=== PATIENT | male | born 1980 | race Caucasian/White ===

== ENCOUNTER 2017-01-10 10:33 | Emergency (ER) | payer BC ==
[2017-01-10] MEDS ORDERED: Ketorolac 60 MG/2 ML SDV IM ONE (11:09)
--- NOTE | 2017-01-10 11:09 | EDM.PDOC ---
ED HPI GENERAL MEDICAL PROBLEM - General Chief Complaint: Lower Extremity Injury/Pain Stated Complaint: RT ANKLE HURTS Time Seen by Provider: 01/10/17 10:54 Source of Information: Reports: Patient History Limitations: Reports: No Limitations - History of Present Illness INITIAL COMMENTS - FREE TEXT/NARRATIVE: History of present illness: [36-year-old male presenting with complaints of right-sided ankle pain. Patient indicates that he woke up with swelling on the external aspect of his ankle and was painful to step down onto the foot.] Review of systems: As per history of present illness and below otherwise all systems reviewed and negative. Past medical history: As per history of present illness and as reviewed below otherwise noncontributory. Surgical history: As per history of present illness and as reviewed below otherwise noncontributory. Social history: No reported history of drug or alcohol abuse. Family history: As per history of present illness and as reviewed below otherwise noncontributory. Physical exam: HEENT: Atraumatic, normocephalic, pupils reactive, negative for conjunctival pallor or scleral icterus, mucous membranes moist, throat clear, neck supple, nontender, trachea midline. Lungs: Clear to auscultation, breath sounds equal bilaterally, chest nontender. Heart: S1S2, regular, negative for clicks, rubs, or JVD. Abdomen: Soft, nondistended, nontender. Negative for masses or hepatosplenomegaly. Negative for costovertebral tenderness. Pelvis: Stable nontender. Genitourinary: Deferred. Rectal: Deferred. Extremities: Right ankle with some amount of swelling from the malleolus into the dorsal aspect of the right foot, tender to touch and radiates up into the leg. Neurovascular unremarkable. Neuro: Awake, alert, oriented. Cranial nerves II through XII unremarkable. Cerebellum unremarkable. Motor and sensory unremarkable throughout. Exam nonfocal. 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 - Related Data Allergies Allergy/AdvReac Type Severity Reaction Status Date / Time No Known Allergies Allergy Verified 01/10/17 10:52 Home Meds: Home Meds methylPREDNISolone [Medrol] 4 mg PO DAILY #21 tab.ds.pk 01/10/17 [Rx] Review of Systems - Review of Systems Review Of Systems: See Below (See history of present illness) ED EXAM, GENERAL - Physical Exam Exam: See Below (See history of present illness) Course - Vital Signs Last Recorded V/S: Last Vital Signs Temp 36.2 C 01/10/17 10:52 Pulse 78 01/10/17 10:52 Resp 18 01/10/17 10:52 BP 136/78 01/10/17 10:52 Pulse Ox 98 01/10/17 10:52 - Orders/Labs/Meds Orders: Active Orders 24 hr Category Date Time Status Ankle Min 3V Rt [CR] Stat Exams 01/10/17 10:49 Ordered Meds: Medications Discontinued Medications Generic Name Dose Route Start Last Admin Trade Name Ayla PRN Reason Stop Dose Admin Ketorolac Tromethamine 60 mg 01/10/17 11:09 Toradol IM 01/10/17 11:10 ONETIME ONE Departure - Departure Time of Disposition: 12:09 Disposition: Home, Self-Care 01 Condition: Good Clinical Impression: Os trigonum syndrome - Discharge Information Prescriptions: methylPREDNISolone [Medrol] 4 mg PO DAILY #21 [email or web address] Referrals: PCP,None [Primary Care Provider] - Forms: ED Department Discharge Additional Instructions: The following information is given to patients seen in the emergency department who are being discharged to home. This information is to outline your options for follow-up care. We provide all patients seen in our emergency department with a follow-up referral. The need for follow-up, as well as the timing and circumstances, are variable depending upon the specifics of your emergency department visit. If you don't have a primary care physician on staff, we will provide you with a referral. We always advise you to contact your personal physician following an emergency department visit to inform them of the circumstance of the visit and for follow-up with them and/or the need for any referrals to a consulting specialist. The emergency department will also refer you to a specialist when appropriate. This referral assures that you have the opportunity for follow-up care with a specialist. All of these measure are taken in an effort to provide you with optimal care, which includes your follow-up. Under all circumstances we always encourage you to contact your private physician who remains a resource for coordinating your care. When calling for follow-up care, please make the office aware that this follow-up is from your recent emergency room visit. If for any reason you are refused follow-up, please contact the [facility] Emergency Department at and asked to speak to the emergency department charge nurse. Take medication as directed Use walking boot and crutches as instructed Follow-up with orthopedics as discussed [facility] [address], [address] [place] [address] - My Orders Last 24 Hours: My Active Orders 01/10/17 10:49 Ankle Min 3V Rt [CR] Stat - Assessment/Plan Last 24 Hours: My Active Orders 01/10/17 10:49 Ankle Min 3V Rt [CR] Stat
--- NOTE | 2017-01-11 15:14 | CR ---
EXAM DATE: 01/10/17 PATIENT'S AGE: 36 Patient: PIA ARRINGTON Facility: [place], [place] Site . Site : [id number] Study: XRay Extremity Right ankle [id number]/29/2017 11:29:37 AM Ordering Physician: Doctor George Final Report: HISTORY: Right ankle pain. TECHNIQUE: Three views of the right ankle. COMPARISON: No prior. FINDINGS: There is no acute fracture. The ankle mortise appears maintained. There is likely an os trigonum. Soft tissue swelling overlies the lateral malleolus. IMPRESSION: 1. No acute fracture or malalignment. 2. Soft tissue swelling overlying the lateral malleolus. Dictated by Colt Joaquin MD @ 01/10/2017 11:53:36 AM Dictated by: Colt Joaquin MD @ 01/10/2017 11:53:39 (Electronic Signature) Report Signed by Proxy. [email or web address]
== END 2017-01-10 12:31 | disposition home or self-care (01) ==
LOC: MW.ED 10:33
DX: Q68.8 Other specified congenital musculoskeletal deformities (principal); Z79.899 Other long term (current) drug therapy
CPT/HCPCS: 73610; 96372; 99283; J1885; 99282